=== PATIENT | female | born 1975 | race Caucasian/White ===

== ENCOUNTER → 2018-05-23 | Outpatient (CLI) | payer OTHER ==
[~2018-05-23] MED LIST: ALBIPROI INH; ALBU90OI; ALBU90OI61 INH; Amoxicillin500 MG PO; CLEM1.34; CRUTCH4 USE; CYCL10 PO; DIPH50 PO; ESTMED; ESTR1 PO; ESTR2 PO; ESTRADIOL1 MG; Estradiol1 MG PO; FAMO20 PO; GABA300; GABA300 PO; HYDACE10B; HYDACE10B PO; HYDACE5 PO; HYDPAM50 PO; IBUP200; IBUP800; IBUP800 PO; LEVFLO500 PO; LISI5; LISI5 PO; METF500; METF500 PO; OMEP40CA12; OXYACE5T PO; PHENTERMINE PO; PRED20 PO; PROCODE120 PO; Pepcid40 MG PO; Prednisone20 MG PO; RXCYCL10 PO; RXHYDACE PO; [UNRECOGNIZED DRUG - OTHER]; [UNRECOGNIZED DRUG - OTHER] PO; [UNRECOGNIZED DRUG - REMARK]; [UNRECOGNIZED DRUG - REMARK]
[2018-05-25 14:08] LABS: HPV 16 Negative (Negative); HPV 18 Negative (Negative); HPV OTHER HR TYPES Negative (Negative)
== END | disposition home or self-care (01) ==
LOC: LAB SHORT 19:00 → LAB 19:00
PROVIDERS: Obstetrics & Gynecology Gynecology
DX: Z12.4 Encounter for screening for malignant neoplasm of cervix (principal); L29.3 Anogenital pruritus, unspecified
CPT/HCPCS: 87070; 87205; 87624; G0123

== ENCOUNTER 2018-11-10 11:29 | Emergency (ER) | payer OTHER ==
[~2018-11-10] VITALS: Ht 162.6 cm; Wt 90.3 kg
[2018-11-10] MEDS ORDERED: BUPR75 (11:44)
[2018-11-10] MEDS ORDERED: OXYC5 PO (11:44)
== END 2018-11-10 13:28 | disposition home or self-care (01) ==
LOC: ER 11:29
DX: S49.91XA Unspecified injury of right shoulder and upper arm, initial encounter (principal); S89.91XA Unspecified injury of right lower leg, initial encounter; W19.XXXA Unspecified fall, initial encounter; Z91.030 Bee allergy status; Z88.8 Allergy status to other drugs, medicaments and biological substances; Z88.2 Allergy status to sulfonamides; Z79.899 Other long term (current) drug therapy; Z79.84 Long term (current) use of oral hypoglycemic drugs; E11.9 Type 2 diabetes mellitus without complications; J45.909 Unspecified asthma, uncomplicated; I10 Essential (primary) hypertension; F17.290 Nicotine dependence, other tobacco product, uncomplicated
CPT/HCPCS: 73030; 73070; 73110; 73562-RT; 73610; 73630; 96372; 99283-25; J1885